=== PATIENT | male | born 1980 | race Two or more races ===

== ENCOUNTER 2016-10-07 12:11 | Emergency (ER) | payer OTHER ==
[2016-10-07 12:33] VITALS: BP 116/74
--- NOTE | 2016-10-07 12:53 | UC ---
Cardiac HPI - HPI Summary HPI Summary: WOKE UP THIS MORNING WITH PALPITATIONS AND PAIN IN LEFT SHOULDER, BACK AND UNDER ARM. FEELS LIKE A PRESSURE. SLIGHT LIGHTHEADEDNESS. HAD SIGNIFICANT SOB AT ONSET THAT IS NOW RESOLVED. DENIES NAUSEA OR SWEATS. NOT WORSE WITH EXERTION. DID NOT SLEEP MUCH LAST NIGHT - UP DOING WORK. HAD A DOUBLE SHOT ESPRESSO AT 6PM WHICH IS NOT NORMAL FOR HIM. NO UNUSUAL STRESSORS. NO UNDERLYING ANXIETY. IS CONCERNED BECAUSE HIS DAD HAD NC AGE 50. - History of Current Complaint Chief Complaint: UCChestPain Stated Complaint: CHEST COMPLAINT SHORTNESS OF BREATH Time Seen by Provider: 10/07/16 12:26 Hx Obtained From: Patient Onset/Duration: Sudden Onset, Lasting Hours, Still Present Timing: Constant Initial Severity: Moderate Current Severity: Moderate Pain Intensity: 3 Chest Pain Location: Left Lateral Character: Pounding, Pressure/Squeezing Aggravating: Nothing Alleviating: Nothing Associated Signs & Symptoms: Positive: SOB, Palpitations - Allergy/Home Medications Allergies/Adverse Reactions: Allergies Allergy/AdvReac Type Severity Reaction Status Date / Time No Known Allergies Allergy Verified 10/07/16 12:33 Home Medications: Home Medications NK [No Home Medications Reported] 10/07/16 [History Confirmed 10/07/16] PMH/Surg Hx/FS Hx/Imm Hx Previously Healthy: Yes - Surgical History Surgical History: Yes Surgery Procedure, Year, and Place: RT HIP ARTHROSCOPY (DEBRIDEMENT)due to inflammation 07/2013 - Family History Known Family History: Positive: Cardiac Disease - DAD NC AGE 50 - Social History Alcohol Use: Rare Substance Use Type: None Smoking Status (MU): Never Smoked Tobacco Review of Systems Constitutional: Negative Respiratory: Shortness Of Breath Cardiovascular: Palpitations, Chest Pain Gastrointestinal: Negative All Other Systems Reviewed And Are Negative: Yes Physical Exam Triage Information Reviewed: Yes Appearance: Well-Appearing, No Pain Distress, Well-Nourished Vital Signs: Initial Vital Signs Temp 99.0 F 10/07/16 12:28 Pulse 55 10/07/16 12:28 Resp 18 10/07/16 12:28 BP 116/74 10/07/16 12:28 Pulse Ox 100 10/07/16 12:28 Vital Signs Reviewed: Yes Eyes: Positive: Conjunctiva Clear ENT: Positive: Hearing grossly normal Neck: Positive: Supple, Nontender, No Lymphadenopathy Respiratory Exam: Normal Cardiovascular Exam: Normal Abdomen Description: Positive: Soft Musculoskeletal: Positive: No Edema Neurological: Positive: Alert Psychological: Positive: Age Appropriate Behavior Skin: Negative: rashes Diagnostics - EKG Cardiac Rate: Bradycardia - 56 BPM Cardiac Rhythm: Sinus: Normal Ectopy: None ST Segment: Normal - Clinical Impression Provider Diagnoses: CHEST PAIN/PALPITATIONS - Physician Notifications Discussed Patient Care With: DR. JOSE SNYDER Time Discussed With Above Provider: 13:02 - TO [facility] [place] [facility] [place] [facility] [place] Discharge - Discharge Plan Condition: Stable Disposition: AGAINST MEDICAL ADVICE Referrals: Renetta Alejo MD [Primary Care Provider] -
== END 2016-10-07 13:02 | disposition left against medical advice (07) ==
LOC: UCEAST 12:11
DX: R07.9 Chest pain, unspecified (principal); R00.2 Palpitations
CPT/HCPCS: 93005; 99212; G0463

== ENCOUNTER 2016-10-07 13:57 | Emergency (ER) | payer OTHER ==
[2016-10-07] MEDS ORDERED: Ketorolac INJ* 60 MG/2 ML VIAL IM ONE (17:04)
[2016-10-07 17:22] LABS: Hematocrit 44 % (42-52); Hemoglobin 14.3 g/dl (14.0-18.0); Mean Corpuscular HGB Conc 33 g/dl (31-36); Mean Corpuscular Hemoglobin 26 pg (27-31); Mean Corpuscular Volume 79 fL (80-94); Mean Platelet Volume 8 um3 (7.4-10.4); Red Blood Count 5.48 10^6/ul (4.0-5.4); Red Cell Distribution Width 13 % (10.5-15); White Blood Count 6.8 10^3/ul (3.5-10.8)
--- NOTE | 2016-10-07 17:34 | RAD ---
INDICATION: Chest pain COMPARISON: July 05, 2015. TECHNIQUE: PA and lateral dual-energy views were obtained. FINDINGS: Bones/Soft Tissues: There are no acute bony findings. Cardiomediastinal: The cardiomediastinal silhouette is normal. Lungs: There are no infiltrates. Pleura: There are no pleural effusions. Other: None IMPRESSION: NO ACTIVE DISEASE.
[2016-10-07 17:38] LABS: Albumin 4.1 g/dL (3.2-5.2); BUN/Creatinine Ratio 12.4 (8-20); Calcium 9.4 mg/dL (8.6-10.3); EGFR African American 124.4 (>60); EGFR Non-African American 96.7 (>60); Potassium 4.2 mmol/L (3.5-5.0); Total Bilirubin 0.4 mg/dL (0.2-1.0); Total Protein 7.1 g/dL (6.4-8.9)
[2016-10-07 17:59] LABS: TSH (Thyroid Stimulating Horm) 0.92 mcIU/mL (0.34-5.60)
[2016-10-07 18:42] LABS: Urine Bilirubin Negative (Negative); Urine Glucose Negative (Negative); Urine Nitrite Negative (Negative)
[2016-10-07 19:11] VITALS: BP 104/72
--- NOTE | 2016-10-08 12:29 | ED ---
Ottoniel Scott Billy, scribed for Eric Olivas MD on 10/07/16 at 1703 . Complex/Multi-Sys Presentation - HPI Summary HPI Summary: This patient is a 36 year old male who presents to [facility] with complaints of acute shortness of breath upon waking up this morning. He reports the feeling of his heart "beating out of his body," which lasted for approximately 5 minutes this morning before spontaneously resolving. Later in the day, he experienced pain behind the left shoulder. This shoulder pain has persisted, but the chest pain has resolved. At this point, he only complains of the shoulder pain. Patient denies nausea or vomiting. - History Of Current Complaint Chief Complaint: EDGeneral Time Seen by Provider: 10/07/16 16:50 Hx Obtained From: Patient Onset/Duration: Sudden Onset Timing: Intermittent, Lasting: Severity Currently: Moderate Severity Initially: Moderate Location: Pain At: - Left shoulder Associated Signs And Symptoms: Positive: SOB, Chest Pain, Palpitations - "heart beating out of his chest", Other - shoulder pain. Negative: Nausea, Vomiting - Allergies/Home Medications Allergies/Adverse Reactions: Allergies Allergy/AdvReac Type Severity Reaction Status Date / Time No Known Allergies Allergy Verified 10/07/16 12:33 PMH/Surg Hx/FS Hx/Imm Hx Endocrine/Hematology History: Denies: Hx Diabetes, Hx Thyroid Disease Cardiovascular History: Denies: Hx Hypertension, Hx Pacemaker/ICD Respiratory History: Denies: Hx Asthma, Hx Chronic Obstructive Pulmonary Disease (COPD), Other Respiratory Problems/Disorders GI History: Denies: Hx Ulcer Sensory History: Denies: Hx Hearing Aid Psychiatric History: Denies: Hx Panic Disorder - Cancer History Cancer Type, Location and Year: 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 - Surgical History Surgery Procedure, Year, and Place: RT HIP ARTHROSCOPY (DEBRIDEMENT)due to inflammation 07/2013 Infectious Disease History: No Infectious Disease History: Denies: Hx Clostridium Difficile, Hx Hepatitis, Hx Human Immunodeficiency Virus (HIV), Hx of Known/Suspected MRSA, Hx Shingles, Hx Tuberculosis, Hx Known/ Suspected VRSA, History Other Infectious Disease, Traveled Outside the [place] in Last 30 Days - Family History Known Family History: Positive: Cardiac Disease - DAD [place] AGE 50 - Social History Alcohol Use: Rare Substance Use Type: Reports: None Smoking Status (MU): Never Smoked Tobacco Review of Systems Positive: Palpitations, Chest Pain Positive: Shortness Of Breath Negative: Vomiting, Nausea Musculoskeletal: Other - shoulder pain All Other Systems Reviewed And Are Negative: Yes Physical Exam - Summary Physical Exam Summary: VITAL SIGNS: Reviewed. GENERAL: Patient is a well-developed and nourished male who is lying comfortable in the stretcher. Patient is not in any acute respiratory distress. HEAD AND FACE: No signs of trauma. No ecchymosis, hematomas or skull depressions. No sinus tenderness. EYES: PERRLA, EOMI x 2, No injected conjunctiva, no nystagmus. EARS: Hearing grossly intact. Ear canals and tympanic membranes are within normal limits. MOUTH: Oropharynx within normal limits. NECK: Supple, trachea is midline, no adenopathy, no JVD, no carotid bruit, no c- spine tenderness, neck with full ROM. CHEST: Symmetric, no tenderness at palpation LUNGS: Clear to auscultation bilaterally. No wheezing or crackles. CVS: Regular rate and rhythm, S1 and S2 present, no murmurs or gallops appreciated. ABDOMEN: Soft, non-tender. No signs of distention. No rebound no guarding, and no masses palpated. Bowel sounds are normal. EXTREMITIES: FROM in all major joints, no edema, no cyanosis or clubbing. NEURO: Alert and oriented x 3. No acute neurological deficits. Speech is normal and follows commands. SKIN: Dry and warm Triage Information Reviewed: Yes Vital Signs On Initial Exam: Initial Vitals Temp Pulse BP Pulse Ox 99.2 F 74 124/77 100 10/07/16 14:15 10/07/16 14:15 10/07/16 14:15 10/07/16 14:15 Vital Signs Reviewed: Yes Diagnostics - Vital Signs Vital Signs Temp Pulse Resp BP Pulse Ox 10/07/16 16:41 57 13 100 10/07/16 16:39 119/74 10/07/16 16:37 97.5 F 59 18 119/74 99 10/07/16 14:15 99.2 F 74 124/77 100 - Laboratory Lab Results: Lab Results 10/07/16 10/07/16 10/07/16 Range/Units 17:07 17:07 17:07 WBC 6.8 (3.5-10.8) 10^3/ul RBC 5.48 H (4.0-5.4) 10^6/ul Hgb 14.3 (14.0-18.0) g/dl Hct 44 (42-52) % MCV 79 L (80-94) fL MCH 26 L (27-31) pg MCHC 33 (31-36) g/dl RDW 13 (10.5-15) % Plt Count 246 (150-450) 10^3/ul MPV 8 (7.4-10.4) um3 Neut % (Auto) 47.6 (38-83) % Lymph % (Auto) 41.0 (25-47) % [place] % (Auto) 8.5 (1-9) % Eos % (Auto) 2.4 (0-6) % Baso % (Auto) 0.5 (0-2) % Absolute Neuts (auto) 3.2 (1.5-7.7) 10^3/ul Absolute Lymphs (auto) 2.8 (1.0-4.8) 10^3/ul Absolute Monos (auto) 0.6 (0-0.8) 10^3/ul Absolute Eos (auto) 0.2 (0-0.6) 10^3/ul Absolute Basos (auto) 0 (0-0.2) 10^3/ul Absolute Nucleated RBC 0.01 10^3/ul Nucleated RBC % 0.2 Sodium 136 (133-145) mmol/L Potassium 4.2 (3.5-5.0) mmol/L Chloride 104 (101-111) mmol/L Carbon Dioxide 29 (22-32) mmol/L Anion Gap 3 (2-11) mmol/L BUN 11 (6-24) mg/dL Creatinine 0.89 (0.67-1.17) mg/dL Est GFR ( Amer) 124.4 (>60) Est GFR (Non-Af Amer) 96.7 (>60) BUN/Creatinine Ratio 12.4 (8-20) Glucose 100 (70-100) mg/dL Lactic Acid 1.0 (0.5-2.0) mmol/L Calcium 9.4 (8.6-10.3) mg/dL Total Bilirubin 0.40 (0.2-1.0) mg/dL AST 23 (13-39) U/L ALT 31 (7-52) U/L Alkaline Phosphatase 78 (34-104) U/L Total Creatine Kinase 90 (10-223) U/L CK-MB (CK-2) 1.4 (0.6-6.3) ng/mL Troponin I 0.00 (<0.04) ng/mL Total Protein 7.1 (6.4-8.9) g/dL Albumin 4.1 (3.2-5.2) g/dL Globulin 3.0 (2-4) g/dL Albumin/Globulin Ratio 1.4 (1-3) TSH 0.92 (0.34-5.60) mcIU/mL Urine Color Urine Appearance Urine pH (5-9) Ur Specific [place] (1.010-1.030) Urine Protein (Negative) Urine Ketones (Negative) Urine Blood (Negative) Urine Nitrate (Negative) Urine Bilirubin (Negative) Urine Urobilinogen (Negative) Ur Leukocyte Esterase (Negative) Urine Glucose (Negative) 10/07/16 10/07/16 Range/Units 18:06 18:25 WBC (3.5-10.8) 10^3/ul RBC (4.0-5.4) 10^6/ul Hgb (14.0-18.0) g/dl Hct (42-52) % MCV (80-94) fL MCH (27-31) pg MCHC (31-36) g/dl RDW (10.5-15) % Plt Count (150-450) 10^3/ul MPV (7.4-10.4) um3 Neut % (Auto) (38-83) % Lymph % (Auto) (25-47) % [place] % (Auto) (1-9) % Eos % (Auto) (0-6) % Baso % (Auto) (0-2) % Absolute Neuts (auto) (1.5-7.7) 10^3/ul Absolute Lymphs (auto) (1.0-4.8) 10^3/ul Absolute Monos (auto) (0-0.8) 10^3/ul Absolute Eos (auto) (0-0.6) 10^3/ul Absolute Basos (auto) (0-0.2) 10^3/ul Absolute Nucleated RBC 10^3/ul Nucleated RBC % Sodium (133-145) mmol/L Potassium (3.5-5.0) mmol/L Chloride (101-111) mmol/L Carbon Dioxide (22-32) mmol/L Anion Gap (2-11) mmol/L BUN (6-24) mg/dL Creatinine (0.67-1.17) mg/dL Est GFR ( Amer) (>60) Est GFR (Non-Af Amer) (>60) BUN/Creatinine Ratio (8-20) Glucose (70-100) mg/dL Lactic Acid (0.5-2.0) mmol/L Calcium (8.6-10.3) mg/dL Total Bilirubin (0.2-1.0) mg/dL AST (13-39) U/L ALT (7-52) U/L Alkaline Phosphatase (34-104) U/L Total Creatine Kinase (10-223) U/L CK-MB (CK-2) (0.6-6.3) ng/mL Troponin I 0.00 (<0.04) ng/mL Total Protein (6.4-8.9) g/dL Albumin (3.2-5.2) g/dL Globulin (2-4) g/dL Albumin/Globulin Ratio (1-3) TSH (0.34-5.60) mcIU/mL Urine Color Yellow Urine Appearance Clear Urine pH 6.0 (5-9) Ur Specific [place] 1.015 (1.010-1.030) Urine Protein Negative (Negative) Urine Ketones Negative (Negative) Urine Blood Negative (Negative) Urine Nitrate Negative (Negative) Urine Bilirubin Negative (Negative) Urine Urobilinogen Negative (Negative) Ur Leukocyte Esterase Negative (Negative) Urine Glucose Negative (Negative) Result Diagrams: 10/07/16 17:07 10/07/16 17:07 Lab Statement: Any lab studies that have been ordered have been reviewed, and results considered in the medical decision making process. - Radiology CXR Xray Interpretation: No Acute Changes Radiology Interpretation Completed By: Radiologist - EKG 1423 EKG Interpretation: NSR 69 bpm, no STEMI Complex Multi-Symp Course/Dx Assessment/Plan: This patient is a 36 year old male who presents to [facility] with complaints of acute shortness of breath upon waking up this morning. He reports the feeling of his heart "beating out of his body," which lasted for approximately 5 minutes this morning before spontaneously resolving. Later in the day, he experienced pain behind the left shoulder. This shoulder pain has persisted, but the chest pain has resolved. At this point, he only complains of the shoulder pain. Patient denies nausea or vomiting. Test results WNL. The troponin #1 is 0.00. CXR shows no active disease. EKG shows no ST elevations. Second troponin is also 0.00. The patient has no co-morbidities and the family members who have had cardiac disease, they developed at old age >60. Therefore the patient will be discharged home to follow up with PCP. He is hemodynamically stable, A&Ox3. - Diagnoses Differential Diagnoses/HQI/PQRI: Cardiac Ischemia - Costochondritis, chest waal pain, pneumonia Provider Diagnoses: Atypical chest pain Discharge - Discharge Plan Condition: Good Disposition: HOME Patient Education Materials: Noncardiac Chest Pain (ED) Referrals: Aleksandar Hutchison MD [Primary Care Provider] - The documentation as recorded by the Ottoniel alfonso Billy accurately reflects the service I personally performed and the decisions made by , Eric Olivas MD.
== END 2016-10-07 19:12 | disposition home or self-care (01) ==
LOC: ED 13:57
DX: R07.89 Other chest pain (principal); Z82.49 Family history of ischemic heart disease and other diseases of the circulatory system
CPT/HCPCS: 36415; 71020; 80053; 81003; 82550; 82553; 83605; 84443; 84484; 85025; 93005; 96372; 99282; J1885